=== PATIENT | male | born 1995 | race Caucasian/White ===

== ENCOUNTER 2018-10-01 14:54 | Emergency (ER) | payer OTHER ==
[2018-10-01 15:05] VITALS: BP 122/70
--- NOTE | 2018-10-01 16:40 | ED Physician Documentation ---
History of Present Illness - Stated complaint Stated Complaint: DOG BITE VS LIP - Chief complaint Chief Complaint: Laceration - History obtained from History obtained from: Patient - History of Present Illness Timing: How many hours ago (2) Pain level max: 0 Pain level now: 0 Quality: Laceration of right upperLip Improved by: Nothing Worsened by: Nothing Associated symptoms: None - Additonal information Additional information: 22-year-old male with no past medical or surgical history and up-to-date immunizations here with complaint of his dog bit his right upper lip about 2 hours ago. He stated he must have startled on his 14-year-old dog when he was playing with him. His dog has up-to-date rabies shot Review of Systems Ten Systems: 10 systems reviewed and negative Constitutional: denies: Fever Throat: denies: Oral lesions / sores Skin: reports: Laceration (s), Bite / sting (Dog bite) Neurologic: denies: Generalized weakness PD PAST MEDICAL HISTORY - Past Medical History Past Medical History: No - Past Surgical History Past Surgical History: No - Present Medications Home Medications: Ambulatory Orders Medication Instructions Recorded Confirmed Amox/Clav 875/125 [Augmentin] 1 each PO Q12H #14 tablet 10/01/18 - Allergies Allergies/Adverse Reactions: Allergies Allergy/AdvReac Type Severity Reaction Status Date / Time No Known Drug Allergies Allergy Verified 10/01/18 15:05 - Social History Does the pt smoke?: No Smoking Status: Never smoker Does the pt drink ETOH?: No Does the pt have substance abuse?: No - Immunizations Immunizations are current?: Yes Immunizations: TDAP current <10years - POLST Patient has POLST: No PD ED PE NORMAL - Vitals Vital signs reviewed: Yes - General General: Alert and oriented X 3, No acute distress, Well developed/nourished - HEENT HEENT: EOMI, Moist mucous membranes, Pharynx benign - Neck Neck: Supple, no meningeal sign - Respiratory Respiratory: No respiratory distress, Clear bilaterally - Derm Derm: Warm and dry, Other (Above Right upper lip with 1 cm superficial laceration that does not go through The mouth. Buccal mucosa intact. No bleeding.) - Extremities Extremities: No deformity - Neuro Neuro: Alert and oriented X 3 - Psych Psych: Normal mood, Normal affect Results - Vitals Vitals: Vital Signs - 24 hr 10/01/18 15:03 Temperature 36.4 C L Heart Rate 57 L Respiratory 16 Rate Blood Pressure 122/70 O2 Saturation 100 Oxygen O2 Source Room air Procedures - Laceration (location) Lip Wound type: Linear, Superficial, Clean Neurovascular status: Sensory intact, Motor intact, Vascular intact Tendon involvement: Tendon intact Wound Preparation: Irrigated copiously NS Skin layer closure: Steri strips (3) Other: Patient tolerated well, No complications, Neurovascular intact Complexity: Simple PD MEDICAL DECISION MAKING - ED course Complexity details: re-evaluated patient ([id number] Tolerted laceration repair with steri strips. NAD. Laceration above the right lip area approximated; no bleeding.), considered differential (Dog bite, lip laceration), d/w patient Departure - Departure Disposition: 01 Home, Self Care Clinical Impression: Laceration Dog bite Qualifiers: Encounter type: initial encounter Qualified Code(s): W54.0XXA - Bitten by dog, initial encounter Condition: Stable Instructions: ED Laceration All, ED Bite Animal General Prescriptions: Amox/Clav 875/125 [Augmentin] 1 each PO Q12H #14 tablet Comments: Keep the area clean and dry. The Steri-Strips will come off by itself. Avoid pulling the strips nor getting it wet. Take antibiotic as prescribed. If worse return to the emergency room.
== END 2018-10-01 17:22 | disposition home or self-care (01) ==
LOC: ED 14:54
DX: S01.511A Laceration without foreign body of lip, initial encounter (principal); W54.0XXA Bitten by dog, initial encounter
CPT/HCPCS: 99283